=== PATIENT | male | born 1970 | race Caucasian/White ===

== ENCOUNTER 2022-06-22 06:38 | Day surgery (SDC) | payer BC ==
[2022-06-22] MEDS ORDERED: Propofol 200 MG/20 ML SDV ONE (07:18)
[2022-06-22] MEDS ORDERED: fentaNYL 100 MCG/2 ML SDV ONE (07:18)
== END 2022-06-22 09:13 | disposition home or self-care (01) ==
LOC: MW.SDS 06:38
PROVIDERS: ATTEND Surgery
DX: Z12.11 Encounter for screening for malignant neoplasm of colon (principal); D12.5 Benign neoplasm of sigmoid colon; E66.9 Obesity, unspecified; E11.9 Type 2 diabetes mellitus without complications; I10 Essential (primary) hypertension; F17.210 Nicotine dependence, cigarettes, uncomplicated; Z90.49 Acquired absence of other specified parts of digestive tract; Z98.890 Other specified postprocedural states; Z68.32 Body mass index [BMI] 32.0-32.9, adult
CPT/HCPCS: 45380; 45385; 82947; J2704; J3010